=== PATIENT | female | born 1995 | race Asian ===

== ENCOUNTER 2017-04-08 09:15 | Emergency (ER) | payer OTHER ==
--- NOTE | 2017-04-08 10:55 | ED ---
GI/ HPI - HPI Summary HPI Summary: Patient here with constipation and rectal pain. She reports she's not had a bowel movement in 5 days. Rectal pain has been 3 days. Rectal pain feels like peristalsis without passage of stool. She does admit to some watery liquid brown stool that occurred after taking a stool softener on Saturday (provided by [facility]). She's been taking stool softener for the past 3 days without sufficient effect. She also reports trying a glycerin suppository yesterday without effect. Still passing gas below. Denies hematochezia, abdominal pain, nausea, vomiting, fever, chills, dysuria, back or flank pain, bloating or indigestion - still eating and drinking well. No known trauma to rectum. Denies history of abdominal surgery, issues, constipation. LMP Mar 4th - not sexually active - History of Current Complaint Chief Complaint: EDRectalPain Time Seen by Provider: 04/08/17 09:49 Stated Complaint: RECTAL PAIN Hx Obtained From: Patient Pain Intensity: 9 - Allergy/Home Medications Allergies/Adverse Reactions: Allergies Allergy/AdvReac Type Severity Reaction Status Date / Time No Known Allergies Allergy Verified 04/08/17 09:21 Home Medications: Home Medications Docusate CAP* [Colace Cap*] 200 mg PO BEDTIME PRN 04/08/17 [History Confirmed ] Glycerin ADULT SUPP* 1 supp [place] DAILY PRN 04/08/17 [History Confirmed 04/08/17] Ibuprofen TAB* [Advil TAB*] 200 mg PO Q8H PRN 04/08/17 [History Confirmed ] Mometasone NASAL (NF) [Nasonex (NF)] 50 mcg BOTH NARES DAILY 04/08/17 [History Confirmed 04/08/17] PMH/Surg Hx/FS Hx/Imm Hx Previously Healthy: Yes Endocrine/Hematology History: Denies: Hx Diabetes, Hx Thyroid Disease, Hx Anemia, Autoimmune Disease GI History: Denies: Hx Crohn's Disease, Hx Diverticulosis, Hx Gall Bladder Disease, Hx Gastroesophageal Reflux Disease, Hx Gastrointestinal Bleed, Hx Irritable Bowel, Hx Obstructive Bowel, Hx Ulcer - Immunization History Immunizations Up to Date: Yes Infectious Disease History: No Infectious Disease History: Denies: Traveled Outside the [place] in Last 30 Days - Family History Known Family History: Positive: None - Social History Occupation: Student Lives: Dormitory/Roommates Alcohol Use: None Hx Substance Use: No Substance Use Type: Reports: None Hx Tobacco Use: No Smoking Status (MU): Never Smoked Tobacco Review of Systems Constitutional: Negative Eyes: Negative ENT: Negative Cardiovascular: Negative Respiratory: Negative Positive: Other - constipation, rectal pain Genitourinary: Negative Musculoskeletal: Negative Skin: Negative Neurological: Negative All Other Systems Reviewed And Are Negative: Yes Physical Exam Triage Information Reviewed: Yes Vital Signs On Initial Exam: Initial Vitals Temp Pulse Resp BP Pulse Ox 97.6 F 75 16 134/84 99 04/08/17 09:19 04/08/17 09:19 04/08/17 09:19 04/08/17 09:19 04/08/17 09:19 Vital Signs Reviewed: Yes Appearance: Positive: Well-Appearing, No Pain Distress, Well-Nourished Skin: Positive: Warm, Skin Color Reflects Adequate Perfusion, Dry Head/Face: Positive: Normal Head/Face Inspection Eyes: Positive: Normal, EOMI, Conjunctiva Clear - anicteric sclera ENT: Positive: Hearing grossly normal, Pharynx normal - mcuosa moist Neck: Positive: Supple Respiratory/Lung Sounds: Positive: Clear to Auscultation, Breath Sounds Present Cardiovascular: Positive: Normal, RRR, S1, S2 Abdomen Description: Positive: Nontender - dull to percussion, No Organomegaly, Soft, Other: - rectal exam (witnessed by staff) - perirectal erythema w/ tenderness - no focal area of abscess, fistula, drainage, hemorrhoids; soft stool palpated within rectum - no blood or melena Bowel Sounds: Positive: Present Musculoskeletal: Positive: Normal, Strength/ROM Intact Neurological: Positive: Normal, Sensory/Motor Intact, Alert, Oriented to Person Place, Time, CN Intact II-III Psychiatric: Positive: Anxious Diagnostics - Vital Signs Vital Signs Temp Pulse Resp BP Pulse Ox 04/08/17 09:19 97.6 F 75 16 134/84 99 - Laboratory Lab Statement: Any lab studies that have been ordered have been reviewed, and results considered in the medical decision making process. GIGU Course/Dx - Course Course Of Treatment: XR reveals moderate amount of stool - no obstruction. Suspect constipation w/ rectal soreness 2ndry to multiple strained attemps to move bowels. SHe's only tried stoo softner and glycerin suppository and reports pain w/ straining. Advised to try ice, ibuprofen and mag citrate to move bowels. Education about avoiding straining w/ pushing as well as holding her breath - encouraged to try relaxation and breathing while on toilet. She will continue to stay hydrated and follow-up with [facility] as needed. Reviewed danger s/sx of when to return to ED. - Diagnoses Provider Diagnoses: Constipation Discharge - Discharge Plan Condition: Stable Disposition: HOME Prescriptions: Magnesium CITRATE* [Citrate of Magnesia*] 150 ml PO SEE INSTRUCTIONS PRN #1 [id number] PRN Reason: Constipation Patient Education Materials: Constipation (ED), Fleet Enema (ED) Forms: *School Release Referrals: [facility] - Yong GALEANO [Primary Care Provider] - Additional Instructions: You appear to have constipation with rectal tenderness secondary to straining. Take magnesium citrate (sent to [facility] pharmacy today). If you do not have a bowel movement after 150mg of taking this tonight, repeat in the morning. If you are still unable to move your bowels, try a Fleet's enema ( education included here). Be sure to stay hydrated and avoid straining - relax and practice breathing while moving bowels to avoid straining. You may also take ibuprofen with food and apply ice pack to the area for focal pain relief. If still no bowel movement and/or if you develop fever, chills, abdominal pain, vomiting, chest pain, or shortness of breath, return to the ED. Otherwise, follow-up with [facility].
--- NOTE | 2017-04-08 11:13 | RAD ---
INDICATION: Constipation COMPARISON: None TECHNIQUE: Erect and supine views of the abdomen are submitted. FINDINGS: Bones: There are no acute bony findings. Soft tissues: The soft tissues appear normal. The psoas margins are sharp. Bowel gas pattern: There is no obstruction. There is moderate retained stool Calcifications: There are no abnormal calcifications. Other: None IMPRESSION: MODERATE RETAINED STOOL, OTHERWISE NEGATIVE
[2017-04-08] MEDS ORDERED: Ibuprofen TAB* 600 MG PO ONE (12:03)
[2017-04-08 12:25] VITALS: BP 105/62
== END 2017-04-08 12:25 | disposition home or self-care (01) ==
LOC: ED 09:15
DX: K59.00 Constipation, unspecified (principal)
CPT/HCPCS: 74019; 99282; A9270-GY

== ENCOUNTER 2017-04-09 19:54 | Emergency (ER) | payer OTHER ==
[2017-04-09] MEDS ORDERED: Ketorolac INJ* 30 MG/ML 1 ML VIAL IV PUSH ONE (21:27)
[2017-04-09] MEDS ORDERED: NS 0.9% 1000 ML* 1,000 ML IV ONE (21:28)
[2017-04-09 22:18] LABS: ABS Basophils 0 10^3/ul (0-0.2); ABS Eosinophils 0.1 10^3/ul (0-0.6); ABS Lymphocytes 1.8 10^3/ul (1.0-4.8); ABS Monocytes 0.4 10^3/ul (0-0.8); ABS Neutrophils 4.6 10^3/ul (1.5-7.7); ABS Nucleated RBC 0 10^3/ul; Eosinophil % 1.3 % (0-6); Hematocrit 37 % (35-47); Hemoglobin 12.9 g/dl (12.0-16.0); Lymphocyte % 26.2 % (25-47); Mean Corpuscular HGB Conc 35 g/dl (31-36); Mean Corpuscular Hemoglobin 30 pg (27-31); Mean Corpuscular Volume 86 fL (80-97); Mean Platelet Volume 9 um3 (7.4-10.4); Nucleated Red Blood Cells % 0.2; Platelet Count 286 10^3/ul (150-450); Red Blood Count 4.38 10^6/ul (4.0-5.4); Red Cell Distribution Width 13 % (10.5-15); White Blood Count 6.9 10^3/ul (3.5-10.8)
[2017-04-09 22:32] LABS: EGFR Non-African American 153.7 (>60)
[2017-04-10] MEDS ORDERED: Ondansetron INJ* 2 MG/ML VIAL IV ONE (00:26)
[2017-04-10] MEDS ORDERED: Iohexol 300* (CONTRAST) 10 ML SDV IV ONE (00:52)
[2017-04-10] MEDS ORDERED: Lidocaine 2% JELLY* 5 ML TUBE LIDO2GEL7 TOPICAL ONE (01:42)
[2017-04-10] MEDS ORDERED: Magnesium CITRATE* 300 ML BTL PO ONE (01:44)
[2017-04-10] MEDS ORDERED: Lidocaine 2% JELLY* 6 ML JELLY TOPICAL ONE (01:59)
[2017-04-10] MEDS ORDERED: Bisacodyl SUPP* 10 MG SUPP ONE (03:32)
[2017-04-10] MEDS ORDERED: Lidocaine 2% JELLY* 10 ML JELLY TOPICAL ONE (03:43)
[2017-04-10] MEDS ORDERED: Bisacodyl SUPP* 10 MG SUPP PR ONE (03:43)
--- NOTE | 2017-04-10 04:06 | ED ---
Israel Ness Angela, scribed for Puja Leslie MD on 04/09/17 at 2127 . GI/ HPI - HPI Summary HPI Summary: This pt is a 22 y/o female presenting to [facility] c/o rectal pain x5 days. Pt reports she has not had a bowel movement in 1 week. Prior to this she had loose stools. She states she was in the ED yesterday and was diagnosed with constipation, for which she was given magnesium citrate. She has had half a bottle of magnesium citrate with no relief. Pt additionally reports nausea. Denies fever, vomiting. No PMHx. - History of Current Complaint Chief Complaint: EDRectalPain Time Seen by Provider: 04/09/17 21:08 Stated Complaint: RECTAL PAIN Hx Obtained From: Patient Onset/Duration: Started Days Ago, Still Present Timing: Lasting Days Current Severity: Moderate Pain Intensity: 8 Location of Pain: Rectal Associated Signs and Symptoms: Positive: Nausea, Constipation. Negative: Vomiting, Diarrhea, Fever Aggravating Factor(s): Nothing Alleviating Factor(s): Nothing - Allergy/Home Medications Allergies/Adverse Reactions: Allergies Allergy/AdvReac Type Severity Reaction Status Date / Time No Known Allergies Allergy Verified 04/09/17 20:02 PMH/Surg Hx/FS Hx/Imm Hx Endocrine/Hematology History: Denies: Hx Diabetes, Hx Thyroid Disease, Hx Anemia GI History: Denies: Hx Crohn's Disease, Hx Diverticulosis, Hx Gall Bladder Disease, Hx Gastroesophageal Reflux Disease, Hx Gastrointestinal Bleed, Hx Irritable Bowel, Hx Obstructive Bowel, Hx Ulcer Infectious Disease History: No Infectious Disease History: Denies: Traveled Outside the [place] in Last 30 Days - Family History Known Family History: Negative: Cardiac Disease, Hypertension, Diabetes - Social History Alcohol Use: None Hx Substance Use: No Substance Use Type: Reports: None Hx Tobacco Use: No Smoking Status (MU): Never Smoked Tobacco Review of Systems Negative: Fever, Chills Eyes: Negative Gastrointestinal: Other - rectal pain, constipation Positive: Nausea. Negative: Vomiting Skin: Negative Neurological: Negative All Other Systems Reviewed And Are Negative: Yes Physical Exam - Summary Physical Exam Summary: VITAL SIGNS: Reviewed. GENERAL: Patient is a well-developed and nourished male who is lying comfortable in the stretcher. Patient is not in any acute respiratory distress. HEAD AND FACE: No signs of trauma. No ecchymosis, hematomas or skull depressions. No sinus tenderness. EYES: PERRLA, EOMI x 2, No injected conjunctiva, no nystagmus. EARS: Hearing grossly intact. Ear canals and tympanic membranes are within normal limits. MOUTH: Oropharynx within normal limits. NECK: Supple, trachea is midline, no adenopathy, no JVD, no carotid bruit, no c- spine tenderness, neck with full ROM. CHEST: Symmetric, no tenderness at palpation LUNGS: Clear to auscultation bilaterally. No wheezing or crackles. CVS: Regular rate and rhythm, S1 and S2 present, no murmurs or gallops appreciated. ABDOMEN: Soft, non-tender. No signs of distention. No rebound no guarding, and no masses palpated. Hyperactive bowel sounds. 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 Perirectal tenderness. EXTREMITIES: FROM in all major joints, no edema, no cyanosis or clubbing. NEURO: Alert and oriented x 3. No acute neurological deficits. Speech is normal and follows commands. SKIN: Dry and warm Triage Information Reviewed: Yes Vital Signs On Initial Exam: Initial Vitals Temp Pulse Resp BP Pulse Ox 99.1 F 83 15 113/67 95 04/09/17 19:58 04/09/17 19:58 04/09/17 19:58 04/09/17 19:58 04/09/17 19:58 Vital Signs Reviewed: Yes Procedures - Procedure Summary Procedure Summary: Fecal Disimpaction Procedure Note: Pt did have a fecal impaction. Pt was digitally disimpacted by me followed by soapsuds enema. She then had a large bowel movement. Diagnostics - Vital Signs Vital Signs Temp Pulse Resp BP Pulse Ox 04/09/17 19:58 99.1 F 83 15 113/67 95 - Laboratory Result Diagrams: 04/09/17 22:07 04/09/17 22:07 Lab Statement: Any lab studies that have been ordered have been reviewed, and results considered in the medical decision making process. - CT Abdomen/Pelvis CT CT Interpretation: Positive (See Comments) - IMPRESSION: constipation or fecal impaction. Dr. Leslie has reviewed this radiology report. CT Interpretation Completed By: Radiologist Re-Evaluation - Re-Evaluation First Eval Re-Evaluation Time: 03:33 Comment: I tried digital disimpaction, but was only able to get a small amount. Second Eval Re-Evaluation Time: 03:48 Comment: Pt had a large bowel movement. GIGU Course/Dx - Course Course Of Treatment: Pt is a 22 y/o female who presents with rectal pain x5 days and associated constipation for 1 week. In the ED course, the pt was given IV fluids, Zofran and toradol. CT abdomen/pelvis shows constipation or fecal impaction. Pt did have a fecal impaction. Pt was digitally disimpacted by me followed by soapsuds enema. She then had a large bowel movement. Pt will be discharged to home with follow up from her PCP. She is encouraged to increased her fiber intake. - Diagnoses Provider Diagnoses: Fecal impaction, Constipation Discharge - Discharge Plan Condition: Stable Disposition: HOME Patient Education Materials: Constipation (ED), High Fiber Diet (ED), Fecal Impaction (ED) Referrals: [facility] - Yong GALEANO [Primary Care Provider] - 3 Days Additional Instructions: Increase your fiber intake. Please follow up with your primary care provider. RETURN TO EMERGENCY DEPARTMENT FOR ANY NEW OR WORSENING SYMPTOMS. The documentation as recorded by the Israel ybarra Angela accurately reflects the service I personally performed and the decisions made by me, Puja Leslie MD.
[2017-04-10 04:09] VITALS: BP 111/76
--- NOTE | 2017-04-10 08:14 | RAD ---
Indication: Abdominal pain, perianal abscess Contrast:Administered 79.0 ml of OMNIPAQUE 300 mg/ml CT of the abdomen and pelvis was performed after oral and IV contrast administration. Coronal and sagittal reconstructed images were obtained. Lung bases demonstrate no pleural fluid, nodules or masses. Heart is of normal size without evidence of pericardial effusion. Liver is normal in size. No focal lesions or intrahepatic duct dilatation is noted. The spleen is normal in size. Pancreas demonstrates no mass or pancreatic duct dilatation. The common duct is not dilated. The gallbladder demonstrates no calcified gallstones. No pericholecystic fluid or wall thickening. No adrenal masses are noted. The kidneys demonstrate symmetric nephrograms without focal lesions. The ureters are normal in course and caliber. No retroperitoneal adenopathy is noted. Dilated loops of bowel are noted. Aorta and inferior vena cava are unremarkable. The retroperitoneal lymphadenopathy is noted. CT of the pelvis demonstrates uterus and ovaries to be unremarkable. Urinary bladder is otherwise unremarkable. No free fluid is identified. Stool is present throughout the colon. No evidence of perianal abscess is noted. IMPRESSION: FECAL STASIS AND POSSIBLE IMPACTION OF STOOL IN THE RECTAL. NO EVIDENCE OF PERIANAL ABSCESS IS NOTED. NO OTHER MASSES OR FLUID COLLECTIONS ARE NOTED.
== END 2017-04-10 04:17 | disposition home or self-care (01) ==
LOC: ED 19:54
DX: K56.41 Fecal impaction (principal); R11.0 Nausea
CPT/HCPCS: 36415; 74177; 80053; 85025; 86140; 96374; 96375; 99284; A9270-GY; J1885; J2405